=== PATIENT | male | born 1990 | race Two or more races ===

== ENCOUNTER 2016-12-31 15:57 | Emergency (ER) | payer SELFPAY ==
[~2016-12-31] VITALS: Ht 195.6 cm; Wt 127.0 kg
[2016-12-31 17:19] VITALS: BP 152/86
[2016-12-31] MEDS ORDERED: cefTRIAXone SOD 1,000 MG VL IM ONE (17:45)
== END 2016-12-31 18:03 | disposition home or self-care (01) ==
LOC: ER 16:04
DX: L03.115 Cellulitis of right lower limb (principal); Z88.0 Allergy status to penicillin
CPT/HCPCS: 96372; 99283; J0696